=== PATIENT | male | born 1995 | race Caucasian/White ===

== ENCOUNTER 2016-08-25 20:15 | Emergency (ER) | payer OTHER ==
[2016-08-25] MEDS ORDERED: SODIUM CHLORIDE 0.9% 1,000 ML IV ONE (20:47)
[2016-08-25] MEDS ORDERED: ACETAMINOPHEN IV (For NPO) 1,000 MG in EMPTY BAG 1 BAG IVPB STA (20:47)
--- NOTE | 2016-08-25 20:49 | ED ---
General Adult HPI - General Chief complaint: Nausea/Vomiting/Diarrhea Stated complaint: Cough/Vomitting Time Seen by Provider: 08/25/16 20:41 Source: patient, family, RN notes reviewed Mode of arrival: ambulatory Limitations: no limitations - History of Present Illness Initial comments: 21-year-old male presenting for nausea and vomiting. Patient states symptoms began about a week and a half ago. They have been progressively worsening since then. He did see his primary doctor this past Saturday who did a strep test and a influenza which were both negative. He was told at that time it is likely a viral infection and continue supportive care. He states over the past few days he has had persistent nausea vomiting and unable to keep any food or liquid down. States he has had a nonproductive cough as well. He has had some associated fevers and chills. He denies any significant medical history. - Related Data Home Medications Medication Instructions Recorded Confirmed Acetaminophen [Tylenol] 500 mg PO Q4-6H PRN 10/24/15 02/07/16 Previous Rx's Medication Instructions Recorded Aspirin 325 mg PO BID #30 tab 02/07/16 HYDROcodone/APAP 7.5-325MG [[place] 1 - 2 each PO Q6HR PRN #90 tab 02/07/16 7.5] Sennosides-Docusate Sodium 2 tab PO DAILY #60 tablet 02/07/16 [Senokot-S] Ondansetron Odt [Zofran Odt] 4 mg PO Q8HR PRN #12 tab 08/25/16 Allergies Allergy/AdvReac Type Severity Reaction Status Date / Time No Known Allergies Allergy Verified 08/25/16 20:26 Review of Systems ROS Statement: Those systems with pertinent positive or pertinent negative responses have been documented in the HPI. ROS Other: All systems not noted in ROS Statement are negative. Past Medical History Past Medical History: No Reported History Additional Past Medical History / Comment(s): migraines, seizure in past from head injury-last seizure age 11, cut on little finger left hand, urinary leakage at night. previous injury to left knee History of Any Multi-Drug Resistant Organisms: None Reported Past Surgical History: No Surgical Hx Reported Past Anesthesia/Blood Transfusion Reactions: Motion Sickness Past Psychological History: No Psychological Hx Reported Smoking Status: Current every day smoker Past Alcohol Use History: Occasional Additional Past Alcohol Use History / Comment(s): has smoked for 3-4 yrs, 1 1/2 PPD Past Drug Use History: None Reported - Past Family History Mother Family Medical History: Deep Vein Thrombosis (DVT) General Exam - General Exam Comments Initial Comments: General: Awake and Alert. No acute distress. Does not appear acutely ill. Eyes: KAILYN, EOM intact. No nystagmus. No scleral icterus. HENT: Atraumatic, normocephalic. Mucous membranes moist. Trachea midline. Neck: The neck is supple, there is no tenderness or JVD. Cardiovascular: Regular rate and rhythm. No murmur, rub, or gallop is appreciated. Distal pulses intact. Respiratory: Lungs are clear to auscultation bilaterally. No wheezes, rales, rhonchi. No respiratory distress. Gastrointestinal: Soft, Nontender. No rebound or guarding. Non-distended. No masses or organomegaly noted. No CVA tenderness. Musculoskeletal: No tenderness. Normal ROM. No gross deformity. No strength deficits. Neurological: A&Ox3. CN II-XII grossly intact, There are no obvious motor or sensory deficits. Coordination appears grossly intact. Speech is normal. Skin: Skin is warm and dry and no rashes or lesions are noted. Psychiatric: Cooperative, appropriate mood & affect, normal judgment. Limitations: no limitations Course Vital Signs 08/25/16 08/25/16 20:26 22:40 Temperature 102.2 F H 100.6 F H Pulse Rate 116 H 65 Respiratory 16 20 Rate Blood Pressure 161/73 120/60 O2 Sat by Pulse 95 98 Oximetry Medical Decision Making - Medical Decision Making 21-year-old male presenting for nausea and vomiting and cough. Patient noted to be febrile and tachycardic. IV fluids and IV Tylenol ordered. Given Zofran for nausea. Lab workup ordered. Labs a stable CBC and BMP. Lactate was negative. Influenza B is positive Chest x-ray no acute process Patient reevaluated states feeling significantly improved. Discussed imaging and lab findings. Discussed influenza is likely causing symptoms at this time. Clinically patient appears stable without evidence of sepsis at this time. Did not recommend any antibiotic therapy. Discussed that he is unlikely to be within a Tamiflu window with his symptoms. Discussed supportive management of symptoms, Rx for Zofran to help with his nausea and vomiting. Discussed staying well-hydrated. Discussed concerning signs symptoms for immediate return to the ED. Discussed close follow-up with PCP. Patient is agreeable with plan and discharge home. - Lab Data Result diagrams: 08/25/16 21:20 08/25/16 21:20 Lab Results 08/25/16 08/25/16 08/25/16 Range/Units 21:20 21:20 21:20 WBC 7.2 (3.8-10.6) k/uL RBC 5.57 (4.30-5.90) m/uL Hgb 17.3 (13.0-17.5) gm/dL Hct 48.3 (39.0-53.0) % MCV 86.7 (80.0-100.0) fL MCH 31.0 (25.0-35.0) pg MCHC 35.8 (31.0-37.0) g/dL RDW 12.7 (11.5-15.5) % Plt Count 141 L (150-450) k/uL Neutrophils % 63 % Lymphocytes % 26 % Monocytes % 7 % Eosinophils % 1 % Basophils % 1 % Neutrophils # 4.5 (1.3-7.7) k/uL Lymphocytes # 1.9 (1.0-4.8) k/uL Monocytes # 0.5 (0-1.0) k/uL Eosinophils # 0.0 (0-0.7) k/uL Basophils # 0.0 (0-0.2) k/uL Sodium 137 (137-145) mmol/L Potassium 4.5 (3.5-5.1) mmol/L Chloride 101 (98-107) mmol/L Carbon Dioxide 22 (22-30) mmol/L Anion Gap 14 mmol/L BUN 11 (9-20) mg/dL Creatinine 0.90 (0.66-1.25) mg/dL Est GFR (MDRD) Af Amer >60 (>60 ml/min/1.73 sqM) Est GFR (MDRD) Non-Af >60 (>60 ml/min/1.73 sqM) Glucose 98 (74-99) mg/dL Plasma Lactic Acid Candido (0.7-2.0) mmol/L Calcium 9.0 (8.4-10.2) mg/dL Magnesium 2.2 (1.6-2.3) mg/dL Total Bilirubin 1.1 (0.2-1.3) mg/dL AST 53 (17-59) U/L ALT 45 (21-72) U/L Alkaline Phosphatase 51 (38-126) U/L Total Protein 7.4 (6.3-8.2) g/dL Albumin 4.5 (3.5-5.0) g/dL Lipase 52 (23-300) U/L Influenza Type A RNA Not Detected (Not Detectd) Influenza Type B (PCR) Detected H (Not Detectd) 08/25/16 Range/Units 21:20 WBC (3.8-10.6) k/uL RBC (4.30-5.90) m/uL Hgb (13.0-17.5) gm/dL Hct (39.0-53.0) % MCV (80.0-100.0) fL MCH (25.0-35.0) pg MCHC (31.0-37.0) g/dL RDW (11.5-15.5) % Plt Count (150-450) k/uL Neutrophils % % Lymphocytes % % Monocytes % % Eosinophils % % Basophils % % Neutrophils # (1.3-7.7) k/uL Lymphocytes # (1.0-4.8) k/uL Monocytes # (0-1.0) k/uL Eosinophils # (0-0.7) k/uL Basophils # (0-0.2) k/uL Sodium (137-145) mmol/L Potassium (3.5-5.1) mmol/L Chloride (98-107) mmol/L Carbon Dioxide (22-30) mmol/L Anion Gap mmol/L BUN (9-20) mg/dL Creatinine (0.66-1.25) mg/dL Est GFR (MDRD) Af Amer (>60 ml/min/1.73 sqM) Est GFR (MDRD) Non-Af (>60 ml/min/1.73 sqM) Glucose (74-99) mg/dL Plasma Lactic Acid Candido 1.0 (0.7-2.0) mmol/L Calcium (8.4-10.2) mg/dL Magnesium (1.6-2.3) mg/dL Total Bilirubin (0.2-1.3) mg/dL AST (17-59) U/L ALT (21-72) U/L Alkaline Phosphatase (38-126) U/L Total Protein (6.3-8.2) g/dL Albumin (3.5-5.0) g/dL Lipase (23-300) U/L Influenza Type A RNA (Not Detectd) Influenza Type B (PCR) (Not Detectd) - Radiology Data Radiology results: report reviewed, image reviewed Disposition Clinical Impression: Influenza B, Nausea and vomiting, Fever Disposition: HOME SELF-CARE Condition: Stable Instructions: Acute Nausea and Vomiting (ED), Influenza (ED) Prescriptions: Ondansetron Odt [Zofran Odt] 4 mg PO Q8HR PRN #12 tab PRN Reason: Nausea Referrals: Carol Aparicio MD [Primary Care Provider] - 1-2 days Time of Disposition: 22:21
[2016-08-25 21:40] LABS: Basophils % (A) 1 %; CH 32.8; CHCM 37.9; Eosinophils % (A) 1 %; HCT 48.3 % (39.0-53.0); HDW 2.33; HGB 17.3 gm/dL (13.0-17.5); Luc # (Auto) 0.19; Luc % (Auto) 3; Lymphocytes # (A) 1.9 k/uL (1.0-4.8); Lymphocytes % (A) 26 %; MCHC 35.8 g/dL (31.0-37.0); MCV 86.7 fL (80.0-100.0); Monocytes # (A) 0.5 k/uL (0-1.0); Monocytes % (A) 7 %; Neutrophils # (A) 4.5 k/uL (1.3-7.7); Neutrophils % (A) 63 %; RBC 5.57 m/uL (4.30-5.90); RDW 12.7 % (11.5-15.5); WBC 7.2 k/uL (3.8-10.6); WBC (Perox) 7.16
[2016-08-25 21:51] LABS: ALT 45 U/L (21-72); AST 53 U/L (17-59); Alkaline Phosphatase 51 U/L (38-126); Anion Gap 14 mmol/L; Blood Urea Nitrogen 11 mg/dL (9-20); Carbon Dioxide 22 mmol/L (22-30); Chloride 101 mmol/L (98-107); Glucose 98 mg/dL (74-99); Magnesium 2.2 mg/dL (1.6-2.3); Non-African American GFR(MDRD) >60 (>60 ml/min/1.73 sqM); Potassium 4.5 mmol/L (3.5-5.1); Sodium 137 mmol/L (137-145); Total Bilirubin 1.1 mg/dL (0.2-1.3); Total Protein 7.4 g/dL (6.3-8.2)
--- NOTE | 2016-08-25 21:57 | XR ---
EXAMINATION TYPE: XR chest 2V DATE OF EXAM: 08/25/2016 9:39 PM COMPARISON: NONE HISTORY: Vomiting and cough TECHNIQUE: Frontal and lateral views of the chest are obtained. FINDINGS: Heart and mediastinum are normal. Lungs are clear. Diaphragm is normal. Bony thorax is int act. IMPRESSION: Normal chest
[2016-08-25 22:42] VITALS: BP 120/60; PULSE 65; RESP 20; TEMP 100.6
== END 2016-08-25 22:41 | disposition home or self-care (01) ==
LOC: EC 20:15
DX: J10.1 Influenza due to other identified influenza virus with other respiratory manifestations (principal); R11.2 Nausea with vomiting, unspecified; F17.200 Nicotine dependence, unspecified, uncomplicated
CPT/HCPCS: 36415; 80053; 83605; 83690; 83735; 85025; 87502; 71020; 99284; 96374; 96361; J0131

== ENCOUNTER 2017-01-16 00:42 | Emergency (ER) | payer OTHER ==
[2017-01-16 00:54] VITALS: BP 134/77; PULSE 95; RESP 16; TEMP 97.8
--- NOTE | 2017-01-16 01:18 | ED ---
Skin/Abscess/FB HPI - General Chief complaint: Skin/Abscess/Foreign Body Stated complaint: mole removal site bleeding Time Seen by Provider: 01/16/17 01:13 Source: patient, family, RN notes reviewed Mode of arrival: ambulatory Limitations: no limitations - History of Present Illness Initial comments: 21-year-old male present emergency department for recheck of his wound. Patient states he had a more move index of his head on by his primary care physician. Patient states he was advised to be seen if he had any bleeding. Patient states he took a shower and got out and then he rubbed his hand across the wound in which the scab fell off. They did notice some bleeding but states she has subsided. Patient states that he just wants to be checked and has no other concerns at this time. - Related Data Home Medications Medication Instructions Recorded Confirmed Cetirizine HCl [Zyrtec] 10 mg PO DAILY 01/16/17 01/16/17 FLUoxetine HCL [PROzac] 10 mg PO DAILY 01/16/17 01/16/17 Ibuprofen [Motrin] 200 mg PO Q6HR PRN 01/16/17 01/16/17 Multivitamin [Men's Multi-Vitamin] 1 each PO DAILY 01/16/17 01/16/17 Allergies Allergy/AdvReac Type Severity Reaction Status Date / Time No Known Allergies Allergy Verified 01/16/17 00:53 Review of Systems ROS Statement: Those systems with pertinent positive or pertinent negative responses have been documented in the HPI. ROS Other: All systems not noted in ROS Statement are negative. Past Medical History Past Medical History: No Reported History Additional Past Medical History / Comment(s): migraines, seizure in past from head injury-last seizure age 11, cut on little finger left hand, urinary leakage at night. previous injury to left knee History of Any Multi-Drug Resistant Organisms: None Reported Past Surgical History: No Surgical Hx Reported Past Anesthesia/Blood Transfusion Reactions: Motion Sickness Past Psychological History: Anxiety, Depression Smoking Status: Current every day smoker Past Alcohol Use History: Occasional Past Drug Use History: Marijuana - Past Family History Mother Family Medical History: Deep Vein Thrombosis (DVT) General Exam Limitations: no limitations General appearance: alert, in no apparent distress Head exam: Present: atraumatic, normocephalic. Absent: normal inspection ( Occipital region on the right there is a 1 cm open wound at approximately 0.5 cm deep) Eye exam: Present: normal appearance, PERRL, EOMI. Absent: scleral icterus, conjunctival injection, periorbital swelling ENT exam: Present: normal exam, mucous membranes moist Neck exam: Present: normal inspection. Absent: tenderness, meningismus, lymphadenopathy Respiratory exam: Present: normal lung sounds bilaterally. Absent: respiratory distress, wheezes, rales, rhonchi, stridor Cardiovascular Exam: Present: regular rate, normal rhythm, normal heart sounds. Absent: systolic murmur, diastolic murmur, rubs, gallop, clicks Course Vital Signs 01/16/17 00:48 Temperature 97.8 F Pulse Rate 95 Respiratory 16 Rate Blood Pressure 134/77 O2 Sat by Pulse 97 Oximetry Medical Decision Making - Medical Decision Making 21-year-old male presented for wound recheck. There is no acute bleeding and no concerns for the site. Pathology of the lesion removed was the intradermal nevus Disposition Clinical Impression: Encounter for wound re-check Disposition: HOME SELF-CARE Condition: Stable Instructions: Acute Wound Care (ED) Additional Instructions: Please return to the Emergency Department if symptoms worsen or any other concerns. Referrals: Carol Aparicio MD [Primary Care Provider] - 1-2 days Time of Disposition: 01:18
== END 2017-01-16 01:25 | disposition home or self-care (01) ==
LOC: EC 00:42
DX: L76.34 Postprocedural seroma of skin and subcutaneous tissue following other procedure (principal); Z76.89 Persons encountering health services in other specified circumstances; F32.9 Major depressive disorder, single episode, unspecified; F41.9 Anxiety disorder, unspecified; F17.200 Nicotine dependence, unspecified, uncomplicated; Z79.899 Other long term (current) drug therapy
CPT/HCPCS: 99283

== ENCOUNTER 2017-10-02 09:57 | Emergency (ER) | payer OTHER ==
[2017-10-02 11:20] VITALS: RESP 18
[2017-10-02] MEDS ORDERED: ONDANSETRON ODT 4 MG TAB PO STA (11:46)
--- NOTE | 2017-10-02 11:49 | ED ---
Nausea/Vomiting/Diarrhea HPI - General Chief complaint: Nausea/Vomiting/Diarrhea Stated complaint: Vomiting Time Seen by Provider: 10/02/17 11:35 Source: patient, RN notes reviewed Mode of arrival: ambulatory Limitations: no limitations - History of Present Illness Initial comments: 22-year-old male presents emergency Department chief complaint of nausea. Patient denies since yesterday had one episode where he spit up some. He has no abdominal pain. Mild heartburn. Has complains of some nasal congestion and drainage. Patient has fever, chills, back pain, headache, dizziness, ear pain. No sick contacts. Patient states he is here for a work note at this time. - Related Data Home Medications Medication Instructions Recorded Confirmed Ibuprofen [Motrin] 200 mg PO Q6HR PRN 01/16/17 10/02/17 Previous Rx's Medication Instructions Recorded Famotidine [Pepcid] 20 mg PO BID #14 tablet 10/02/17 Ondansetron Odt [Zofran Odt] 4 mg PO Q8HR PRN #10 tab 10/02/17 Allergies Allergy/AdvReac Type Severity Reaction Status Date / Time No Known Allergies Allergy Verified 10/02/17 11:42 Review of Systems ROS Statement: Those systems with pertinent positive or pertinent negative responses have been documented in the HPI. ROS Other: All systems not noted in ROS Statement are negative. Past Medical History Past Medical History: No Reported History, Seizure Disorder Additional Past Medical History / Comment(s): migraines, seizure in past from head injury-last seizure age 11, urinary leakage at night. previous injury to left knee History of Any Multi-Drug Resistant Organisms: None Reported Past Surgical History: Orthopedic Surgery Past Anesthesia/Blood Transfusion Reactions: Motion Sickness Past Psychological History: Anxiety, Depression Smoking Status: Current every day smoker Past Alcohol Use History: Occasional Past Drug Use History: Marijuana - Past Family History Mother Family Medical History: Deep Vein Thrombosis (DVT) General Exam Limitations: no limitations General appearance: alert, in no apparent distress Head exam: Present: atraumatic, normocephalic, normal inspection Eye exam: Present: normal appearance, PERRL, EOMI. Absent: scleral icterus, conjunctival injection, periorbital swelling ENT exam: Present: normal exam, normal oropharynx, mucous membranes moist Neck exam: Present: normal inspection, full ROM. Absent: tenderness, meningismus, lymphadenopathy Respiratory exam: Present: normal lung sounds bilaterally. Absent: respiratory distress, wheezes, rales, rhonchi, stridor Cardiovascular Exam: Present: regular rate, normal rhythm, normal heart sounds. Absent: systolic murmur, diastolic murmur, rubs, gallop, clicks GI/Abdominal exam: Present: soft, normal bowel sounds. Absent: distended, tenderness, guarding, rebound, rigid Course Vital Signs 10/02/17 11:15 Temperature 97.4 F L Pulse Rate 67 Respiratory 18 Rate Blood Pressure 127/75 O2 Sat by Pulse 99 Oximetry Medical Decision Making - Medical Decision Making 22-year-old male presented for nausea. Patient has no abdominal pain. Patient given Zofran emergency from. Patient will be given some antacids for possible underlying GERD. Patient also is advised to go, Claritin for his ALLERGIES. Return parameters were discussed. Disposition Clinical Impression: Nausea, Environmental allergies Disposition: HOME SELF-CARE Condition: Stable Instructions: Acute Nausea and Vomiting (ED) Additional Instructions: Please return to the Emergency Department if symptoms worsen or any other concerns. Prescriptions: Famotidine [Pepcid] 20 mg PO BID #14 tablet Ondansetron Odt [Zofran Odt] 4 mg PO Q8HR PRN #10 tab PRN Reason: Nausea Is patient prescribed a controlled substance at d/c from ED?: No Referrals: Carol Aparicio MD [Primary Care Provider] - 1-2 days Time of Disposition: 11:49
[2017-10-02 12:01] VITALS: BP 124/87; PULSE 87; TEMP 97.8
== END 2017-10-02 12:00 | disposition home or self-care (01) ==
LOC: EC 09:57
DX: R11.2 Nausea with vomiting, unspecified (principal); Z88.9 Allergy status to unspecified drugs, medicaments and biological substances; R12 Heartburn; M54.9 Dorsalgia, unspecified; R51 Headache; H92.09 Otalgia, unspecified ear; F17.200 Nicotine dependence, unspecified, uncomplicated
CPT/HCPCS: 99283

== ENCOUNTER 2017-10-04 22:48 | Emergency (ER) | payer OTHER ==
[2017-10-04] MEDS ORDERED: SODIUM CHLORIDE 0.9% 1,000 ML IV STA (23:57)
[2017-10-04] MEDS ORDERED: ONDANSETRON 4 MG/2 ML VIAL IVP STA (23:57)
[2017-10-05 00:23] LABS: Basophils % (A) 0 %; Eosinophils # (A) 0.5 k/uL (0-0.7); Eosinophils % (A) 4 %; HCT 45.1 % (39.0-53.0); HGB 16.3 gm/dL (13.0-17.5); Lymphocytes # (A) 4.9 k/uL (1.0-4.8); Lymphocytes % (A) 35 %; MCH 30.9 pg (25.0-35.0); MCHC 36.2 g/dL (31.0-37.0); MCV 85.5 fL (80.0-100.0); Mean Platelet Volume 10.6; Monocytes # (A) 0.5 k/uL (0-1.0); Monocytes % (A) 4 %; Neutrophils # (A) 7.9 k/uL (1.3-7.7); Neutrophils % (A) 57 %; Platelet Count 111 k/uL (150-450); RBC 5.28 m/uL (4.30-5.90); RDW 12.8 % (11.5-15.5)
[2017-10-05 00:36] LABS: ALT 24 U/L (21-72); AST 20 U/L (17-59); Albumin 4.8 g/dL (3.5-5.0); Alkaline Phosphatase 54 U/L (38-126); Amylase 43 U/L (30-110); Anion Gap 16 mmol/L; Blood Urea Nitrogen 9 mg/dL (9-20); Calcium 10.1 mg/dL (8.4-10.2); Carbon Dioxide 22 mmol/L (22-30); Chloride 106 mmol/L (98-107); Glucose 92 mg/dL (74-99); Lipase 46 U/L (23-300); Potassium 4.1 mmol/L (3.5-5.1); Sodium 144 mmol/L (137-145); Total Protein 7.1 g/dL (6.3-8.2)
--- NOTE | 2017-10-05 00:52 | ED ---
Nausea/Vomiting/Diarrhea HPI - General Chief complaint: Nausea/Vomiting/Diarrhea Stated complaint: Nausea Time Seen by Provider: 10/04/17 23:28 Source: patient, family Mode of arrival: ambulatory Limitations: no limitations - History of Present Illness Initial comments: 22-year-old male patient presents to the emergency department today for evaluation of vomiting and diarrhea 2 days. Patient states that he has been dry heaving all day. States he is unable to keep down any food or fluids. Patient states he has had 2-3 bowel movements per day. Denies any fevers but states he has been chilled. Denies any difficulty urinating. Denies any hematochezia or melena. Denies any alcohol use. Reports daily marijuana use. Patient denies any recent rash, shortness breath, chest pain, back pain, numbness, tingling, dizziness, weakness, hematuria, dysuria, urinary urgency, urinary frequency, headache, visual changes, or any other complaints. - Related Data Home Medications Medication Instructions Recorded Confirmed Ibuprofen [Motrin] 200 mg PO Q6HR PRN 01/16/17 10/04/17 Previous Rx's Medication Instructions Recorded Famotidine [Pepcid] 20 mg PO BID #14 tablet 10/02/17 Ondansetron Odt [Zofran Odt] 4 mg PO Q8HR PRN #10 tab 10/02/17 Allergies Allergy/AdvReac Type Severity Reaction Status Date / Time No Known Allergies Allergy Verified 10/04/17 23:02 Review of Systems ROS Statement: Those systems with pertinent positive or pertinent negative responses have been documented in the HPI. ROS Other: All systems not noted in ROS Statement are negative. Past Medical History Past Medical History: Seizure Disorder Additional Past Medical History / Comment(s): migraines, seizure in past from head injury-last seizure age 11, urinary leakage at night. previous injury to left knee, History of Any Multi-Drug Resistant Organisms: None Reported Past Surgical History: Orthopedic Surgery Past Anesthesia/Blood Transfusion Reactions: Motion Sickness Past Psychological History: Anxiety, Depression Smoking Status: Current every day smoker Past Alcohol Use History: Occasional Past Drug Use History: Marijuana - Past Family History Mother Family Medical History: Deep Vein Thrombosis (DVT) General Exam Limitations: no limitations General appearance: alert, in no apparent distress, other (This is a well- developed, well-nourished adult male patient in no acute distress. Vital signs upon presentation are temperature 100.3F, pulse 81, respirations 18, blood pressure 139/87, pulse ox 98% on room air.) Eye exam: Present: normal appearance, PERRL, EOMI. Absent: scleral icterus, conjunctival injection, periorbital swelling ENT exam: Present: normal exam, normal oropharynx, mucous membranes moist Respiratory exam: Present: normal lung sounds bilaterally. Absent: respiratory distress, wheezes, rales, rhonchi, stridor Cardiovascular Exam: Present: regular rate, normal rhythm, normal heart sounds. Absent: systolic murmur, diastolic murmur, rubs, gallop, clicks GI/Abdominal exam: Present: soft, normal bowel sounds. Absent: distended, tenderness, guarding, rebound, rigid Neurological exam: Present: alert, oriented X3, CN II-XII intact Psychiatric exam: Present: normal affect, normal mood Skin exam: Present: warm, dry, intact, normal color. Absent: rash Course Vital Signs 10/04/17 10/04/17 10/05/17 22:51 23:20 01:15 Temperature 100.3 F H 97.6 F 99.0 F Pulse Rate 81 65 66 Respiratory 18 16 18 Rate Blood Pressure 139/87 143/67 136/86 O2 Sat by Pulse 98 97 100 Oximetry Medical Decision Making - Medical Decision Making 22-year-old male patient presented to the emergency department today for complaints of vomiting and diarrhea. Patient did have low-grade temperature. Physical examination was unremarkable. Abdomen soft and nontender. Labs reviewed and showed a mildly elevated white blood cell count most likely reactive from vomiting or from viral infection. Did discuss findings and results with the patient. He is feeling better after receiving IV Zofran and fluids. We did discuss diagnosis of gastroenteritis. He is instructed to start with a clear liquid diet and advance as tolerated. He is instructed to follow-up with his primary care physician for recheck in 1-2 days. Return parameters discussed in detail. He verbalizes understanding and agrees with this plan. - Lab Data Result diagrams: 10/05/17 00:10 10/05/17 00:10 Lab Results 10/05/17 10/05/17 10/05/17 Range/Units 00:10 00:10 01:15 WBC 14.0 H (3.8-10.6) k/uL RBC 5.28 (4.30-5.90) m/uL Hgb 16.3 (13.0-17.5) gm/dL Hct 45.1 (39.0-53.0) % MCV 85.5 (80.0-100.0) fL MCH 30.9 (25.0-35.0) pg MCHC 36.2 (31.0-37.0) g/dL RDW 12.8 (11.5-15.5) % Plt Count 111 L (150-450) k/uL Neutrophils % 57 % Lymphocytes % 35 % Monocytes % 4 % Eosinophils % 4 % Basophils % 0 % Neutrophils # 7.9 H (1.3-7.7) k/uL Lymphocytes # 4.9 H (1.0-4.8) k/uL Monocytes # 0.5 (0-1.0) k/uL Eosinophils # 0.5 (0-0.7) k/uL Basophils # 0.0 (0-0.2) k/uL Sodium 144 (137-145) mmol/L Potassium 4.1 (3.5-5.1) mmol/L Chloride 106 (98-107) mmol/L Carbon Dioxide 22 (22-30) mmol/L Anion Gap 16 mmol/L BUN 9 (9-20) mg/dL Creatinine 0.80 (0.66-1.25) mg/dL Est GFR (CKD-EPI)AfAm >90 (>60 ml/min/1.73 sqM) Est GFR (CKD-EPI)NonAf >90 (>60 ml/min/1.73 sqM) Glucose 92 (74-99) mg/dL Calcium 10.1 (8.4-10.2) mg/dL Total Bilirubin 1.0 (0.2-1.3) mg/dL AST 20 (17-59) U/L ALT 24 (21-72) U/L Alkaline Phosphatase 54 (38-126) U/L Total Protein 7.1 (6.3-8.2) g/dL Albumin 4.8 (3.5-5.0) g/dL Amylase 43 (30-110) U/L Lipase 46 (23-300) U/L Urine Color Yellow Urine Appearance Clear (Clear) Urine pH 7.0 (5.0-8.0) Ur Specific Watkins 1.008 (1.001-1.035) Urine Protein Negative (Negative) Urine Glucose (UA) Negative (Negative) Urine Ketones Negative (Negative) Urine Blood Negative (Negative) Urine Nitrite Negative (Negative) Urine Bilirubin Negative (Negative) Urine Urobilinogen <2.0 (<2.0) mg/dL Ur Leukocyte Esterase Negative (Negative) Disposition Clinical Impression: Gastroenteritis Disposition: HOME SELF-CARE Condition: Good Instructions: Gastroenteritis (ED) Additional Instructions: Increase fluids. Take medications as directed. Follow-up with your primary care physician for recheck in 1-2 days. Return here immediately for any new, worsening, or concerning symptoms. Is patient prescribed a controlled substance at d/c from ED?: No Referrals: Carol Aparicio MD [Primary Care Provider] - 1-2 days Time of Disposition: 01:46
[2017-10-05] MEDS ORDERED: SODIUM CHLORIDE 0.9% 1,000 ML IV ONE (01:07)
[2017-10-05] MEDS: ACETAMINOPHEN TAB 325 MG TAB PO STA ×2 (01:09→01:13)
[2017-10-05 01:19] VITALS: BP 136/86; PULSE 66; RESP 18; TEMP 99
[2017-10-05 01:24] LABS: Appearance,Urine Clear (Clear); Bilirubin,Urine Negative (Negative); Blood,Urine Negative (Negative); Color,Urine Yellow; Glucose,Urine (UA) Negative (Negative); Ketones,Urine Negative (Negative); Leukocyte Esterase,Urine Negative (Negative); Nitrite,Urine Negative (Negative); Protein,Urine Negative (Negative); Specific Gravity,Urine 1.008 (1.001-1.035); Urobilinogen,Urine <2.0 mg/dL (<2.0)
== END 2017-10-05 02:01 | disposition home or self-care (01) ==
LOC: EC 22:48
DX: K52.9 Noninfective gastroenteritis and colitis, unspecified (principal); D72.829 Elevated white blood cell count, unspecified; F17.200 Nicotine dependence, unspecified, uncomplicated
CPT/HCPCS: 99284 ×2; 96374 ×2; 96361 ×3; 36415; 80053; 82150; 83690; 85025; 81003; J2405

== ENCOUNTER 2018-05-25 19:27 | Emergency (ER) | payer OTHER ==
[2018-05-25 19:48] VITALS: BP 131/81; PULSE 84; TEMP 98.4
--- NOTE | 2018-05-25 20:49 | ED ---
Abdominal Pain HPI - General Chief Complaint: Abdominal Pain Stated Complaint: Constipated Time Seen by Provider: 05/25/18 20:12 Source: patient Mode of arrival: ambulatory Limitations: no limitations - History of Present Illness Initial Comments: Patient is a 23-year-old male presenting for anal discomfort. He states that this is been present for the last 3-4 days and he feels like he has had a bowel movement he cannot. He denies any abdominal pain as well as constipation. He states that about 3 weeks ago, he had unprotected receptive anal sex and is also complaining of clear and green mucus discharge from his anus. He denies any testicular pain - Related Data Previous Rx's Medication Instructions Recorded Doxycycline [Vibramycin] 100 mg PO BID 7 Days #14 capsule 05/25/18 Allergies Allergy/AdvReac Type Severity Reaction Status Date / Time lavender (Lavandula Allergy Dyspnea Verified 05/25/18 20:39 angustifolia) Review of Systems ROS Statement: Those systems with pertinent positive or pertinent negative responses have been documented in the HPI. Constitutional: Negative for chills, fatigue and fever. HENT: Negative for congestion. Respiratory: Negative for chest tightness, shortness of breath and wheezing. Negative for cough Cardiovascular: Negative for chest pain and palpitations. Gastrointestinal: Negative for abdominal pain. Negative for abdominal distention , diarrhea, nausea and vomiting. Genitourinary: Negative for dysuria. : Positive for rectal pain. Positive for rectal discharge Musculoskeletal: Negative for back pain, neck pain and neck stiffness. Skin: Negative for color change. Neurological: Negative for dizziness, speech difficulty, weakness and light- headedness. Psychiatric/Behavioral: Negative for agitation and confusion. Negative for anxiety ROS Other: All systems not noted in ROS Statement are negative. Past Medical History Past Medical History: Seizure Disorder Additional Past Medical History / Comment(s): migraines, seizure in past from head injury-last seizure age 11, urinary leakage at night. previous injury to left knee, History of Any Multi-Drug Resistant Organisms: None Reported Past Surgical History: Orthopedic Surgery Past Anesthesia/Blood Transfusion Reactions: Motion Sickness Past Psychological History: Anxiety, Depression Smoking Status: Current every day smoker Past Alcohol Use History: Occasional Past Drug Use History: Marijuana - Past Family History Mother Family Medical History: Deep Vein Thrombosis (DVT) General Exam - General Exam Comments Initial Comments: Constitutional: Pt is oriented to person, place, and time. Pt appears well- developed and well-nourished. No distress. HENT: Head: Normocephalic and atraumatic. Eyes: EOM are normal. Neck: Normal range of motion. Neck supple. Cardiovascular: Normal rate, regular rhythm, S1 normal, S2 normal and normal heart sounds. Exam reveals no gallop and no friction rub. No murmur heard. Pulmonary/Chest: Effort normal and breath sounds normal. No tachypnea and no bradypnea. No respiratory distress. No wheezes or rales noted. Abdominal: Soft. Bowel sounds are normal. Pt exhibits no shifting dullness, no distension, no pulsatile liver, no fluid wave, no abdominal bruit and no ascites. There is no tenderness. There is no rigidity, no rebound, no guarding, no tenderness at McBurney's point and negative Villegas's sign. Musculoskeletal: Normal range of motion. : Positive for anal fissure at 7 o'clock position, no testicular pain or erythema. Neurological: Pt is alert and oriented to person, place, and time. No cranial nerve deficit. Skin: Skin is warm and dry. No rash noted. Pt is not diaphoretic. No erythema. No pallor. Psychiatric: Pt has a normal mood and affect. Pt behavior is normal. Thought content normal. Limitations: no limitations Course Vital Signs 05/25/18 05/25/18 19:45 23:37 Temperature 98.4 F Pulse Rate 84 Respiratory 16 17 Rate Blood Pressure 131/81 O2 Sat by Pulse 99 Oximetry Medical Decision Making - Medical Decision Making Laboratory studies showed that there is only mild leukocytosis of 13.2. There is no evidence of urinary tract infection, pancreatitis or transaminitis. Because there was concern about proctitis from sex, CT of the abdomen was performed and showed no evidence of emergent pathology. Nonetheless, there was still concern about STDs in the perirectal area and therefore the patient was treated empirically with 250 mg Rocephin and 7 day course of doxycycline. Gonorrhea and chlamydia testing were pending at the time of disposition. Patient was strongly advised to follow-up with PCP in next 1-2 days and to avoid any risky sexual behavior. Patient was agreeable to plan. - Lab Data Result diagrams: 05/25/18 21:03 05/25/18 21:03 Lab Results 05/25/18 05/25/18 05/25/18 Range/Units 21:03 21:03 21:03 WBC 13.2 H (3.8-10.6) k/uL RBC 5.33 (4.30-5.90) m/uL Hgb 16.7 (13.0-17.5) gm/dL Hct 46.3 (39.0-53.0) % MCV 86.9 (80.0-100.0) fL MCH 31.4 (25.0-35.0) pg MCHC 36.1 (31.0-37.0) g/dL RDW 12.3 (11.5-15.5) % Plt Count 255 (150-450) k/uL Neutrophils % 67 % Lymphocytes % 25 % Monocytes % 4 % Eosinophils % 2 % Basophils % 0 % Neutrophils # 8.8 H (1.3-7.7) k/uL Lymphocytes # 3.4 (1.0-4.8) k/uL Monocytes # 0.5 (0-1.0) k/uL Eosinophils # 0.3 (0-0.7) k/uL Basophils # 0.1 (0-0.2) k/uL Sodium 140 (137-145) mmol/L Potassium 4.6 (3.5-5.1) mmol/L Chloride 106 (98-107) mmol/L Carbon Dioxide 22 (22-30) mmol/L Anion Gap 12 mmol/L BUN 12 (9-20) mg/dL Creatinine 0.76 (0.66-1.25) mg/dL Est GFR (CKD-EPI)AfAm >90 (>60 ml/min/1.73 sqM) Est GFR (CKD-EPI)NonAf >90 (>60 ml/min/1.73 sqM) Glucose 98 (74-99) mg/dL Calcium 9.8 (8.4-10.2) mg/dL Total Bilirubin 0.9 (0.2-1.3) mg/dL AST 27 (17-59) U/L ALT 42 (21-72) U/L Alkaline Phosphatase 74 (38-126) U/L Total Protein 7.2 (6.3-8.2) g/dL Albumin 4.4 (3.5-5.0) g/dL Lipase 52 (23-300) U/L Urine Color Yellow Urine Appearance Clear (Clear) Urine pH 6.5 (5.0-8.0) Ur Specific [place] 1.019 (1.001-1.035) Urine Protein Trace H (Negative) Urine Glucose (UA) Negative (Negative) Urine Ketones Negative (Negative) Urine Blood Negative (Negative) Urine Nitrite Negative (Negative) Urine Bilirubin Negative (Negative) Urine Urobilinogen <2.0 (<2.0) mg/dL Ur Leukocyte Esterase Negative (Negative) Disposition Clinical Impression: Anal fissure, Rectal discharge Disposition: HOME SELF-CARE Condition: Good Prescriptions: Doxycycline [Vibramycin] 100 mg PO BID 7 Days #14 capsule Is patient prescribed a controlled substance at d/c from ED?: No Referrals: Carol Aparicio MD [Primary Care Provider] - 1-2 days Time of Disposition: 23:15
[2018-05-25 21:26] LABS: Appearance,Urine Clear (Clear); Basophils # (A) 0.1 k/uL (0-0.2); Basophils % (A) 0 %; Bilirubin,Urine Negative (Negative); Blood,Urine Negative (Negative); Color,Urine Yellow; Eosinophils # (A) 0.3 k/uL (0-0.7); Eosinophils % (A) 2 %; Glucose,Urine (UA) Negative (Negative); HCT 46.3 % (39.0-53.0); HGB 16.7 gm/dL (13.0-17.5); Ketones,Urine Negative (Negative); Leukocyte Esterase,Urine Negative (Negative); Lymphocytes # (A) 3.4 k/uL (1.0-4.8); Lymphocytes % (A) 25 %; MCH 31.4 pg (25.0-35.0); MCHC 36.1 g/dL (31.0-37.0); MCV 86.9 fL (80.0-100.0); Mean Platelet Volume 8.5; Monocytes # (A) 0.5 k/uL (0-1.0); Monocytes % (A) 4 %; Neutrophils # (A) 8.8 k/uL (1.3-7.7); Neutrophils % (A) 67 %; Nitrite,Urine Negative (Negative); PH, Urine 6.5 (5.0-8.0); Platelet Count 255 k/uL (150-450); Protein,Urine Trace (Negative); RBC 5.33 m/uL (4.30-5.90); RDW 12.3 % (11.5-15.5); Specific Gravity,Urine 1.019 (1.001-1.035); Urobilinogen,Urine <2.0 mg/dL (<2.0); WBC 13.2 k/uL (3.8-10.6)
[2018-05-25 21:33] LABS: ALT 42 U/L (21-72); AST 27 U/L (17-59); Albumin 4.4 g/dL (3.5-5.0); Alkaline Phosphatase 74 U/L (38-126); Anion Gap 12 mmol/L; Blood Urea Nitrogen 12 mg/dL (9-20); Calcium 9.8 mg/dL (8.4-10.2); Carbon Dioxide 22 mmol/L (22-30); Chloride 106 mmol/L (98-107); Glucose 98 mg/dL (74-99); Lipase 52 U/L (23-300); Potassium 4.6 mmol/L (3.5-5.1); Sodium 140 mmol/L (137-145); Total Bilirubin 0.9 mg/dL (0.2-1.3); Total Protein 7.2 g/dL (6.3-8.2)
--- NOTE | 2018-05-25 22:06 | CT ---
EXAMINATION TYPE: CT abdomen pelvis w con DATE OF EXAM: 05/25/2018 COMPARISON: None HISTORY: R/O proctitis CT DLP: 738.5 mGycm Automated exposure control for dose reduction was used. TECHNIQUE: Helical acquisition of images was performed from the lung bases through the pelvis. CONTRAST: Performed without Oral Contrast and with IV Contrast, patient injected with 100 mL of Isovue 300. FINDINGS: Lung bases are clear. There is no pleural effusion. Heart size is normal. There is no pericardial eff usion. Stomach appears normal. Liver spleen pancreas gallbladder appear normal. Bile ducts are not di lated. There is no adrenal mass. Kidneys show satisfactory contrast opacification. There is no hydron ephrosis. There is no retroperitoneal adenopathy. There is no mesenteric edema or adenopathy. Bladder distends smoothly. Ureters are not dilated. There is no inguinal hernia. There are a few small ingui nal lymph nodes. I see no intestinal wall thickening. The rectum shows no wall thickening. The append ix appears normal. There is no evidence of a bowel obstruction. There is a small umbilical hernia neo t contains fat. The lumbar spine is intact. Bony pelvis is intact. IMPRESSION: NEGATIVE CT SCAN OF THE ABDOMEN AND PELVIS. NO EVIDENCE OF PROCTITIS. NO EVIDENCE OF COLITIS. NORMAL APPENDIX.
[2018-05-25] MEDS ORDERED: cefTRIAXone 250 MG VIAL IM STA (23:09)
[2018-05-25] MEDS ORDERED: DOXYCYCLINE 100 MG CAP PO STA (23:09)
[2018-05-25 23:40] VITALS: RESP 17
[2018-05-26 15:11] LABS: C. trachomatis,PCR Negative (Neg,Equiv); Chlamydia trachomatis Source Urine
[2018-05-26 15:15] LABS: N. gonorrhoeae,PCR Positive (Neg,Equiv); Neisseria Source Urine
[2018-05-29] MEDS ORDERED: cefTRIAXone 250 MG VIAL IM STA (15:32)
== END 2018-05-25 23:38 | disposition home or self-care (01) ==
LOC: EC 19:27
DX: K60.2 Anal fissure, unspecified (principal); D72.829 Elevated white blood cell count, unspecified; A64 Unspecified sexually transmitted disease; F17.200 Nicotine dependence, unspecified, uncomplicated; Z91.048 Other nonmedicinal substance allergy status; Z53.20 Procedure and treatment not carried out because of patient's decision for unspecified reasons
CPT/HCPCS: 36415; 80053; 83690; 85025; 81003; 87491; 87591; 87086; 74177; 99284; Q9967

== ENCOUNTER 2018-12-08 16:48 | Emergency (ER) | payer OTHER ==
[2018-12-08 18:04] VITALS: BP 118/74; PULSE 68; RESP 16; TEMP 98.6
[2018-12-08] MEDS ORDERED: DEXAMETHASONE 4 MG TAB PO STA (18:27)
--- NOTE | 2018-12-08 18:29 | ED ---
ENT HPI - General Chief complaint: ENT Stated complaint: sore throat Time Seen by Provider: 12/08/18 18:05 Source: patient Mode of arrival: ambulatory Limitations: no limitations - History of Present Illness Initial comments: 23-year-old male presenting for chief Throat since Yesterday. Patient States Pain and Swelling Denies Any Difficulty Breathing or Any Difficulty Swelling. Denies Any Vomiting. States He Has [place] Hot and Cold. Patient Denies Any Vomiting Abdominal Pain Diarrhea. Remaining Review of Systems Negative upon Arrival Patient Appears Well No Signs of Acute Distress. - Related Data Previous Rx's Medication Instructions Recorded Doxycycline [Vibramycin] 100 mg PO BID 7 Days #14 capsule 05/25/18 Amoxicillin 500 mg PO Q12HR 10 Days #20 cap 12/08/18 Allergies Allergy/AdvReac Type Severity Reaction Status Date / Time lavender (Lavandula Allergy Dyspnea Verified 12/08/18 18:04 angustifolia) Review of Systems ROS Statement: Those systems with pertinent positive or pertinent negative responses have been documented in the HPI. ROS Other: All systems not noted in ROS Statement are negative. Past Medical History Past Medical History: Seizure Disorder Additional Past Medical History / Comment(s): migraines, seizure in past from head injury-last seizure age 11, urinary leakage at night. previous injury to left knee, History of Any Multi-Drug Resistant Organisms: None Reported Past Surgical History: Orthopedic Surgery Past Anesthesia/Blood Transfusion Reactions: Motion Sickness Past Psychological History: Anxiety, Depression Smoking Status: Current every day smoker Past Alcohol Use History: Occasional Past Drug Use History: Marijuana - Past Family History Mother Family Medical History: Deep Vein Thrombosis (DVT) General Exam - General Exam Comments Initial Comments: General: The patient is awake and alert, in no distress, and does not appear acutely ill. Eye: +3 mm pupils are equal, round and reactive to light, extra-ocular movements are intact. No nystagmus. There is normal conjunctiva bilaterally. No signs of icterus. No photophobia Ears, nose, mouth and throat: There are moist mucous membranes and no oral lesions. Oropharynx is erythematous tonsils are enlarged with exudates.. Uvula midline. Tympanic membranes are not erythematous or is no effusions bulging or retraction. No tenderness to palpation of the mastoid. No anterior cervical lymphadenopathy. Rhinorrhea, clear and bilateral nares. No tripoding, no drooling. Neck: The neck is supple, there is no tenderness or JVD. No nuchal rigidity Cardiovascular: There is a regular rate and rhythm. No murmur, rub or gallop is appreciated. Respiratory: Lungs are clear to auscultation, respirations are non-labored, breath sounds are equal. No wheezes, stridor, rales, or rhonchi. No retractions or abdominal breathing. Gastrointestinal: Soft, non-distended, non-tender abdomen without masses or organomegaly noted. There is no rebound or guarding present. Bowel sounds are unremarkable. Musculoskeletal: Normal ROM, no tenderness. Strength 5/5. Sensation intact. Radial pulses equal bilaterally 2+. Neurological: A&O x 3. CN II-XII intact, There are no obvious motor or sensory deficits. Coordination appears grossly intact. Speech appears normal, no muffling. Skin: Skin is warm and dry and no rashes or lesions are noted. No extremity edema Psychiatric: Cooperative Limitations: no limitations Course Vital Signs 12/08/18 18:02 Temperature 98.6 F Pulse Rate 68 Respiratory 16 Rate Blood Pressure 118/74 O2 Sat by Pulse 96 Oximetry Medical Decision Making - Medical Decision Making well appearing 23-year-old male presented for sore throat. Physical examination findings concerning for strep pharyngitis. Patient will be treated with amoxicillin. No signs of complicating process such as abscess seen at this time on physical examination. Patient is no difficulty breathing uvula midline. No evidence of peritonsillar abscess. Return parameters were discussed at length. I instructed patient to follow up with primary care provider per patient was discharged appearing well Disposition Clinical Impression: Pharyngitis Disposition: HOME SELF-CARE Condition: Good Instructions (If sedation given, give patient instructions): Strep Throat (ED) Additional Instructions: Please use medication as discussed. Please follow-up with family doctor in the next 2 days. Please return to emergency room if the symptoms increase or worsen or for any other concerns, difficulty breathing or swallowing. Prescriptions: Amoxicillin 500 mg PO Q12HR 10 Days #20 cap Is patient prescribed a controlled substance at d/c from ED?: No Referrals: Carol Aparicio MD [Primary Care Provider] - 1-2 days Time of Disposition: 18:28
== END 2018-12-08 18:41 | disposition home or self-care (01) ==
LOC: EC 16:48
DX: J02.9 Acute pharyngitis, unspecified (principal); F17.200 Nicotine dependence, unspecified, uncomplicated; Z91.09 Other allergy status, other than to drugs and biological substances
CPT/HCPCS: 99282; J8540

== ENCOUNTER 2019-07-09 15:59 | Emergency (ER) | payer OTHER ==
[2019-07-09 16:09] VITALS: BP 119/67; PULSE 67; RESP 18; TEMP 98.2
--- NOTE | 2019-07-09 17:22 | ED ---
General Adult HPI - General Chief complaint: ENT Stated complaint: Throat Pain Time Seen by Provider: 07/09/19 16:10 Source: patient, RN notes reviewed Mode of arrival: ambulatory Limitations: no limitations - History of Present Illness Initial comments: 24-year-old male presents to the emergency Department for sore throat. Patient states he has had a sore throat for about a week. States that it is painful to swallow but denies any difficulty swallowing. States he is concerned he may have strep. He denies fevers. States that his lymph nodes were swollen yesterday but seemed better today. Denies cough. Does admit to left ear pain. Patient has no other complaints at this time including shortness of breath, chest pain, abdominal pain, nausea or vomiting, headache, or visual changes. - Related Data Previous Rx's Medication Instructions Recorded Doxycycline [Vibramycin] 100 mg PO BID 7 Days #14 capsule 05/25/18 Amoxicillin 500 mg PO Q12HR 10 Days #20 cap 12/08/18 Amoxicillin 875 mg PO Q12HR #20 tablet 07/09/19 Allergies Allergy/AdvReac Type Severity Reaction Status Date / Time lavender (Lavandula Allergy Dyspnea Verified 07/09/19 16:06 angustifolia) Review of Systems ROS Statement: Those systems with pertinent positive or pertinent negative responses have been documented in the HPI. ROS Other: All systems not noted in ROS Statement are negative. Past Medical History Past Medical History: Seizure Disorder Additional Past Medical History / Comment(s): migraines, seizure in past from head injury-last seizure age 11, urinary leakage at night. previous injury to left knee, History of Any Multi-Drug Resistant Organisms: None Reported Past Surgical History: Orthopedic Surgery Past Anesthesia/Blood Transfusion Reactions: Motion Sickness Past Psychological History: Anxiety, Depression Smoking Status: Current every day smoker Past Alcohol Use History: Occasional Past Drug Use History: Marijuana - Past Family History Mother Family Medical History: Deep Vein Thrombosis (DVT) General Exam Limitations: no limitations General appearance: alert, in no apparent distress Head exam: Present: atraumatic, normocephalic, normal inspection Eye exam: Present: normal appearance, PERRL, EOMI. Absent: scleral icterus, conjunctival injection, periorbital swelling ENT exam: Present: normal exam, mucous membranes moist, TM's normal bilaterally, normal external ear exam. Absent: normal oropharynx (mildly erythematous throat, uvula is midline, tonsillar pillars appear symmetric, no evidence for RETANNER at this time) Neck exam: Present: normal inspection, full ROM (Full range of motion of the neck). Absent: tenderness, meningismus, lymphadenopathy Respiratory exam: Present: normal lung sounds bilaterally. Absent: respiratory distress, wheezes, rales, rhonchi, stridor Cardiovascular Exam: Present: regular rate, normal rhythm, normal heart sounds. Absent: systolic murmur, diastolic murmur, rubs, gallop, clicks Course Vital Signs 07/09/19 16:07 Temperature 98.2 F Pulse Rate 67 Respiratory 18 Rate Blood Pressure 119/67 O2 Sat by Pulse 98 Oximetry Medical Decision Making - Medical Decision Making Vitals are stable. Physical exam reveals an erythematous oropharynx however no evidence for peritonsillar abscess. Uvula is midline. Strep is positive. Patient will be treated with amoxicillin. Recommend he follow up with primary care and return if he has any worsening symptoms. Discussed with him including difficulty swallowing or symptoms are not improving after 24-48 hours of antibiotic use. - Lab Data Lab Results 07/09/19 Range/Units 16:20 Group A Strep Rapid Positive A (Negative) Disposition Clinical Impression: Strep throat Disposition: HOME SELF-CARE Condition: Good Instructions (If sedation given, give patient instructions): Strep Throat (ED) Additional Instructions: Please take amoxicillin as directed. If you have any worsening symptoms such as difficulty swallowing return to the emergency department. If symptoms are not beginning to improve after 24-48 hours return to the emergency department. Otherwise follow-up with primary care for recheck in one to 2 days. Prescriptions: Amoxicillin 875 mg PO Q12HR #20 tablet Is patient prescribed a controlled substance at d/c from ED?: No Referrals: Choco Lo [Primary Care Provider] - 1-2 days Time of Disposition: 17:21
== END 2019-07-09 17:38 | disposition home or self-care (01) ==
LOC: EC 15:59
DX: J02.0 Streptococcal pharyngitis (principal); H92.02 Otalgia, left ear; F17.200 Nicotine dependence, unspecified, uncomplicated; Z91.048 Other nonmedicinal substance allergy status
CPT/HCPCS: 87430; 99283